=== PATIENT | female | born 1985 | race Caucasian/White ===

== ENCOUNTER 2017-05-15 08:03 | Emergency (ER) | payer SELFPAY ==
[~2017-05-15] VITALS: Ht 157.5 cm; Wt 85.0 kg
[~2017-05-15 08:03] MED LIST: DICL50TA2 PO; METH750T2 PO
[2017-05-15 08:04] VITALS: BP 119/64; PULSE 87; RESP 14; TEMP 98.8; O2SAT 99
--- NOTE | 2017-05-15 08:35 | PD ---
HPI Chief Complaint: ENT Complaint Time Seen by Provider: 08:22 Travel History International Travel<30 days: No Contact w/Intl Traveler<30days: No Traveled to known affect area: No History of Present Illness HPI 31-year-old female presents to the emergency Department with complaint of onset of sore throat last night. Has been sick with cold symptoms times one week with improvement and then onset of the sore throat. Denies fevers. Denies unusual drooling, difficulty swallowing, lump in throat. Reports painful swallowing. With nasal congestion, bilateral ear pressure. Nice cough. Denies chest pain, shortness breath, abdominal pain, vomiting, headache. Has been taking Mucinex DM for symptom management. Rates pain 7/10. Reports it as a burning sensation. It is aggravated with swallowing. Does not have an established primary care provider. No known allergies. No other medical complaints. No other modifying factors or associated signs and symptoms. PFSH Past Medical History Cancer: No Cardiovascular Problems: No Diabetes: No Diminished Hearing: No Endocrine: No Genitourinary: No Hepatitis: No Hiatal Hernia: No Immune Disorder: No Musculoskeletal: No Neurologic: No Psychiatric: No Reproductive: No Respiratory: No Immunizations Current: No Thyroid Disease: No ?: Not : 3 Para: 2 Miscarriage: 0 : 1 Past Surgical History Abdominal Surgery: Yes (appendectomy) AICD: No Appendectomy: Yes Joint Replacement: No Pacemaker: No Social History Alcohol Use: No Tobacco Use: No Substance Use: No Allergies-Medications (Allergen,Severity, Reaction): Coded Allergies: No Known Allergies (Verified , 05/26/15) Reported Meds & Prescriptions Reported Meds & Active Scripts Active Ibuprofen 800 Mg Tab 800 Mg PO Q6HR PRN Magic Mouthwash Pediatric/Adult Liq (Lidocaine/Diphenhydr/Alum/Mg/Simeth) 60 Ml Susp 5 Ml SWISH-SWAL Q3HR PRN Each 5mL contains: Diphenydramine 4.5mg, Viscous Lidocaine 2% 10mg, Maalox Advanced Regular Strength 2.7ml Amoxicillin 500 Mg Cap 500 Mg PO BID 10 Days Methocarbamol 750 Mg Tab 750 Mg PO TID PRN Diclofenac Potassium 50 Mg Tab 1 Tab PO Q8 PRN Review of Systems Except as stated in HPI: all other systems reviewed are Neg Physical Exam Narrative GENERAL: Well-nourished, well-developed female patient, in no acute distress; afebrile, nontoxic-appearing SKIN: Warm and dry. No rash. HEAD: Atraumatic. Normocephalic. EYES: Pupils equal and round. No scleral icterus. No injection or drainage. ENT: Mucosa pink and dry. Pharynx with 2+ tonsils; erythema, exudate, and edema. No Uvular edema. No uvular, palatal, or tonsillar deviation. Airway patent. Voice is hoarse. EARS: Bilateral pinnae and external canals appear within normal limits. Bilateral tympanic membranes without erythema, dullness or perforation.. NECK: Trachea midline. Anterior cervical lymphadenopathy and tenderness. CARDIOVASCULAR: Regular rate and rhythm. No murmur appreciated. RESPIRATORY: No accessory muscle use. Clear to auscultation. Breath sounds equal bilaterally. GASTROINTESTINAL: Abdomen soft, non-tender, nondistended. Hepatic and splenic margins not palpable. Bowel sounds are active 4 quadrants. MUSCULOSKELETAL: No obvious deformities. No clubbing. No cyanosis. No edema. NEUROLOGICAL: Awake and alert. Oriented 3. No obvious cranial nerve deficits. Motor grossly within normal limits. Normal speech. Moves all extremities. PSYCHIATRIC: Appropriate mood and affect; insight and judgment normal. Data Data Last Documented VS Vital Signs Date Time Temp Pulse Resp B/P (MAP) Pulse Ox O2 Delivery O2 Flow Rate FiO2 05/15/17 08:15 18 05/15/17 08:04 98.8 87 119/64 (82) 99 Orders Orders Group A Rapid Strep Screen (05/15/17 08:22) Ed Discharge Order (05/15/17 08:38) MDM Medical Decision Making Medical Screen Exam Complete: Yes Emergency Medical Condition: Yes Medical Record Reviewed: Yes Differential Diagnosis Strep pharyngitis, viral pharyngitis, less likely peritonsillar abscess Narrative Course 31-year-old female skull exam consistent with exudative pharyngitis. Patient is afebrile and nontoxic-appearing. Denies fever, vomiting. Recent cold symptoms. Rapid strep pending. Amoxicillin, Magic mouthwash, ibuprofen prescribed for home. Instructed patient to follow up with primary care provider. Patient verbalizes understanding and agreement with treatment plan. Patient is medically cleared and stable for discharge. Discussed reasons to return to the emergency department. Patient agrees with treatment plan. The patients vital signs are stable and the patient is stable for outpatient follow- up and treatment. Patient discharged home, stable and in no acute distress. Diagnosis Primary Impression: Exudative pharyngitis Referrals: [facility] Primary Care Physician Patient Instructions: General Instructions, Pharyngitis (ED) Departure Forms: Tests/Procedures, Work Release Enter return to work date: May 17, 2017 Additional Instructions: Take Antibiotics as prescribed and complete full course of antibiotics Throw away and change your toothbrush 24 hours after starting antibiotics Get plenty of sleep/rest Rest your voice Drink plenty of fluids to prevent dehydration Use warm saltwater gargles to soothe throat pain Use an air humidifier/turn off ceiling fans Use throat lozenges as needed for sore throat Use ibuprofen or acetaminophen as needed to relieve pain and fever Follow-up with your primary care provider within 2-4 days Return immediately to the emergency department with worsening of symptoms Med/Other Pt SpecificInfo: Prescription(s) given Scripts Ibuprofen (Ibuprofen) 800 Mg Tab 800 MG PO Q6HR Y for PAIN, #20 TAB 0 Refills Prov: Fatou Green 05/15/17 Eanjivaocctqxoq-Pixtmuitj-Zgf-Alum-Simeth Liq (Magic Mouthwash Pediatric/Adult Liq) 60 Ml Susp 5 ML SWISH-SWAL Q3HR Y for SORE THROAT, #60 ML 0 Refills Each 5mL contains: Diphenydramine 4.5mg, Viscous Lidocaine 2% 10mg, Maalox Advanced Regular Strength 2.7ml Prov: Fatou Green 05/15/17 Amoxicillin (Amoxicillin) 500 Mg Cap 500 MG PO BID for Infection for 10 Days, #20 CAP 0 Refills Prov: Fatou Green 05/15/17 Disposition: 01 DISCHARGE HOME Condition: Stable Fatou Green May 15, 2017 08:35
[2017-05-15] MEDS ORDERED: IBUP1TAB7 PO (08:37)
[2017-05-15] MEDS ORDERED: MAGICPED SWISH-SWAL (08:37)
[2017-05-15] MEDS ORDERED: AMOX500C PO (08:37)
== END 2017-05-15 09:08 | disposition home or self-care (01) ==
LOC: NEPD 08:03
DX: J02.0 Streptococcal pharyngitis (principal); B95.0 Streptococcus, group A, as the cause of diseases classified elsewhere
CPT/HCPCS: 87880; 99284

== ENCOUNTER 2017-08-09 08:22 | Emergency (ER) | payer SELFPAY ==
[~2017-08-09] VITALS: Ht 157.5 cm; Wt 83.0 kg
[~2017-08-09 08:22] MED LIST changes: +AMOX500C PO; +IBUP1TAB7 PO; +MAGICPED SWISH-SWAL
[2017-08-09 08:33] VITALS: BP 125/63; PULSE 64; RESP 15; TEMP 97.7; O2SAT 98
[2017-08-09] MEDS ORDERED: ROBA750T PO (09:28)
--- NOTE | 2017-08-09 09:33 | PD ---
HPI Chief Complaint: Back/ Neck Pain or Injury Time Seen by Provider: 09:17 Travel History International Travel<30 days: No Contact w/Intl Traveler<30days: No Traveled to known affect area: No History of Present Illness HPI 31-year-old female presents to the emergency room for evaluation of right upper back pain for the past 4 days. Patient states she has had similar pain in the past when she pulled a muscle. She has been taking 800 mg ibuprofen without relief in symptoms. Pain is worsened when she has her arm relaxed and improves when she raises her arm above her head. 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 She has no associated abdominal pain, nausea, vomiting, fever, chills. No chronic medical conditions or daily medications. PFSH Past Medical History Cancer: No Cardiovascular Problems: No Diabetes: No Diminished Hearing: No Endocrine: No Genitourinary: No Hepatitis: No Hiatal Hernia: No Immune Disorder: No Musculoskeletal: No Neurologic: No Psychiatric: No Reproductive: No Respiratory: No Immunizations Current: No Thyroid Disease: No : 3 Para: 2 Miscarriage: 0 : 1 Past Surgical History Abdominal Surgery: Yes (appendectomy) AICD: No Appendectomy: Yes Joint Replacement: No Pacemaker: No Social History Alcohol Use: No Tobacco Use: No Substance Use: No Allergies-Medications (Allergen,Severity, Reaction): Coded Allergies: No Known Allergies (Verified Adverse Reaction, Unknown, 08/09/17) Reported Meds & Prescriptions Reported Meds & Active Scripts Active Robaxin (Methocarbamol) 750 Mg Tab 750 Mg PO Q8HR Ibuprofen 800 Mg Tab 800 Mg PO Q6HR PRN Magic Mouthwash Pediatric/Adult Liq (Lidocaine/Diphenhydr/Alum/Mg/Simeth) 60 Ml Susp 5 Ml SWISH-SWAL Q3HR PRN Each 5mL contains: Diphenydramine 4.5mg, Viscous Lidocaine 2% 10mg, Maalox Advanced Regular Strength 2.7ml Amoxicillin 500 Mg Cap 500 Mg PO BID 10 Days Methocarbamol 750 Mg Tab 750 Mg PO TID PRN Diclofenac Potassium 50 Mg Tab 1 Tab PO Q8 PRN Review of Systems Except as stated in HPI: all other systems reviewed are Neg Physical Exam Narrative GENERAL: Well-nourished, well-developed female no acute distress. Afebrile. Ambulatory. SKIN: Focused skin assessment warm/dry. HEAD: Normocephalic. EYES: No scleral icterus. No injection or drainage. NECK: Supple, trachea midline. No JVD or lymphadenopathy. CARDIOVASCULAR: Regular rate and rhythm without murmurs, gallops, or rubs. RESPIRATORY: Breath sounds equal bilaterally. No accessory muscle use. GASTROINTESTINAL: Abdomen soft, non-tender, nondistended. MUSCULOSKELETAL: No cyanosis. Full range of motion of the right upper extremity. 2+ radial pulse. Mild tenderness to palpation over the right trapezius muscle. Data Data Last Documented VS Vital Signs Date Time Temp Pulse Resp B/P (MAP) Pulse Ox O2 Delivery O2 Flow Rate FiO2 08/09/17 08:33 97.7 64 15 125/63 (83) 98 MDM Medical Decision Making Medical Screen Exam Complete: Yes Emergency Medical Condition: Yes Medical Record Reviewed: Yes Differential Diagnosis Strain, sprain, contusion, fracture, dislocation Narrative Course 31-year-old female presents to the emergency room for evaluation of right upper back pain that started on Monday. 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 No paresthesias. Right upper extremity is neurovascularly intact with full range of motion. Mild to moderate tenderness to palpation of the right trapezius muscle. Patient will be discharged with prescription for Robaxin and told to follow-up with primary care physician or return for worsening symptoms. She understands and agrees to plan. Diagnosis Primary Impression: Trapezius muscle strain Qualified Codes: S46.811A - Strain of other muscles, fascia and tendons at shoulder and upper arm level, right arm, initial encounter Referrals: Primary Care Physician Additional Instructions: Rest and drink plenty of fluids. Take Robaxin as directed, as needed for pain. Take ibuprofen with food as directed, as needed for pain. Apply ice to the affected area for 20 minutes at a time, as needed for pain and swelling. Follow-up with a primary care physician. Return to the emergency room for worsening symptoms. Med/Other Pt SpecificInfo: Prescription(s) given Scripts Methocarbamol (Robaxin) 750 Mg Tab 750 MG PO Q8HR for Muscle Spasm, #15 TAB 0 Refills Prov: Pietro Orr MD 08/09/17 Disposition: 01 DISCHARGE HOME Condition: Stable Olga Rosario Aug 09, 2017 09:33
== END 2017-08-09 09:47 | disposition home or self-care (01) ==
LOC: NEPK 08:22
DX: S46.811A Strain of other muscles, fascia and tendons at shoulder and upper arm level, right arm, initial encounter (principal); X50.0XXA Overexertion from strenuous movement or load, initial encounter; Y99.0 Civilian activity done for income or pay
CPT/HCPCS: 99283